=== PATIENT | female | born 1970 | race Caucasian/White ===

== ENCOUNTER 2017-03-22 08:52 | Observation (INO) | payer BC ==
[2017-03-19 11:01] VITALS: BMI 36.7
[~2017-03-22] VITALS: Ht 165.1 cm; Wt 95.0 kg
[2017-03-22] VITALS (19 sets, daily range): BP systolic 102–140; BP diastolic 60–89; PULSE 63–80; RESP 14–38; Ht 165.1 cm; Wt 95.0 kg
[~2017-03-22 08:52] MED LIST: ADV50050 INH; ALBU18HF IH; AMIT25TA9 PO; AMLO-218 PO; ATEN-51 PO; BENA40TA41 PO; BUPIVACAINE 0.25% (MPF) 30 ML INJ INJ ONE; BUPIVACAINE 0.25%/EPI (SDV) 30 ML INJ INJ ONE; BUPR-34 PO; CHOL2000 PO; GLYCOPYRROLATE 0.4 MG INJ ONE; HYD25 PO; NEOSTIGMINE 3 MG/3 ML SYRINGE ONE; SERT100T PO; TIOT18CA IH
[2017-03-22] MEDS ORDERED: CEFAZOLIN 2 GM/50 ML (PMX) 50 ML IVPB ONE (09:00)
[2017-03-22] MEDS ORDERED: SOD CHLORIDE 0.9% 1,000 ML IV ONE (09:00)
[2017-03-22] MEDS ORDERED: METF500T4 PO (09:44)
[2017-03-22] MEDS ORDERED: AMLO5TAB4 PO (09:47)
[2017-03-22] MEDS ORDERED: ATEN50TA PO (09:47)
[2017-03-22] MEDS ORDERED: BUPR150T18 PO (09:48)
[2017-03-22] MEDS ORDERED: BENA40TA41 PO (09:48)
[2017-03-22] MEDS ORDERED: PRAV20TA63 PO (09:48)
[2017-03-22] MEDS ORDERED: BUPIVACAINE 0.25% (MPF) 30 ML INJ ONE (11:08)
[2017-03-22] MEDS ORDERED: ONDANSETRON 4 MG INJ IV PRN ×2 (11:30→15:30)
[2017-03-22] MEDS ORDERED: OXYCODONE/ACETAMINOPHEN (5/325) TAB PO PRN ×2 (11:30)
[2017-03-22] MEDS ORDERED: KETOROLAC 30 MG INJ IV PRN (11:30)
[2017-03-22] MEDS ORDERED: DIPHENHYDRAMINE 50 MG INJ IV PRN (11:30)
[2017-03-22] MEDS ORDERED: MIDAZOLAM 1 MG/ML 2 ML INJ IV PRN (11:30)
[2017-03-22] MEDS ORDERED: HYDROmorphONE (0.2 MG/ML) 10ML SYG IV PRN ×3 (11:30)
[2017-03-22] MEDS ORDERED: FENTAnyl 50 MCG/ML VIAL IV PRN ×3 (11:30)
[2017-03-22] MEDS ORDERED: MEPERIDINE 25 MG INJ IV PRN (11:30)
[2017-03-22] MEDS ORDERED: hydrALAzine 20 MG INJ IV PRN ×2 (11:30→18:00)
[2017-03-22] MEDS ORDERED: LABETALOL HCL 20MG INJ IV PRN (11:30)
[2017-03-22] MEDS ORDERED: EPHEDrine SULFATE 50 MG/5 ML SYG IV PRN (11:30)
[2017-03-22] MEDS ORDERED: PROPOFOL 100 ML ONE (11:31)
[2017-03-22] MEDS ORDERED: ROCURONIUM 50 MG INJ ONE (11:31)
[2017-03-22] MEDS ORDERED: ACETAMINOPHEN 1000MG/100ML IV 100 ML ONE (11:52)
[2017-03-22] MEDS ORDERED: LIDOCAINE 2% (SDV) 5 ML INJ ONE (11:52)
[2017-03-22] MEDS ORDERED: DEXAMETHASONE 4 MG/ML 1 ML INJ ONE (11:53)
[2017-03-22] MEDS ORDERED: ONDANSETRON 4 MG INJ ONE (11:55)
[2017-03-22] MEDS ORDERED: SOD CHLORIDE 0.9% 1,000 ML IV SCH (12:59)
[2017-03-22] MEDS: CEFAZOLIN 2 GM/50 ML (PMX) 50 ML IVPB SCH ×2 (13:00→20:51)
[2017-03-22] MEDS ORDERED: FENTAnyl 50 MCG/ML VIAL ONE (13:02)
--- NOTE | 2017-03-22 13:07 | OPR ---
Date/Time of Note Date/Time of Note DATE: 03/22/17 TIME: 13:01 Operative Report Procedure Date: Mar 22, 2017 Preoperative Diagnosis recurrent incarcerated ventral hernia Postoperative Diagnosis same Operation Performed 1. open recurrent incarcerated ventral hernia repair cpt code 26001 2. intraabdominal implantation of mesh cpt code 58487 3. removal of old malpositioned mesh 4. lysis of adhesions 5. therapeutic injection of subcutaneous marcaine cpt code 85925 Surgeon: Holly STALEY Anesthesia Type: general Estimated Blood Loss: 10 - 50 ml's Specimens hernia sac old mesh Grafts/Implants: none Complications: no Indications This is a 47-year-old female with a recurrent incarcerated ventral hernia. She required surgical repair. Risks alternatives benefits and percent were discussed the patient. Patient expressed understanding consents to the operation. Procedure Description Patient taken to the OR and prepped and draped in usual sterile fashion. Surgical timeout was performed. IV antibiotics given. Incision is made around the umbilicus and superiorly and inferiorly with a 10 blade. Dissection cautery was carried onto the fascia. Identification of a recurrent hernia was noted. Careful dissection was performed around the hernia and the hernia sac was excised. Incarcerated contents were then manually reduced. The fascial edges were then freshened. The incarcerated contents were reexamined for hemostasis. An old malposition mesh was used to the omentum. This was excised using cautery. The omentum was hemostatic and repositioned back into the abdomen. Significant amount of lysis of adhesions was performed to allow mobilization of the incarcerated contents out of the hernia sac. 15 x [address] mesh was then uses underlay with interrupted #1 Prolene around all of the fascial edges. The fascial edges were then primary closed with a running #1 loop PDS. The surgical wound was then thoroughly irrigated. The surgical wound was hemostatic. The skin was then closed with skin mikey. Therapeutic subcutaneous Marcaine was injected throughout the incision site. Dry dressings were applied. Holly STALEY Mar 22, 2017 13:07
[2017-03-22 13:42] LABS: BASOPHIL # 0.1 10^3/ul (0.0-0.1); BASOPHILS % 0.4 % (0.0-2.0); EOSINOPHILS # 0.1 10^3/ul (0.0-0.5); EOSINOPHILS % 0.5 % (0.0-7.0); HEMOGLOBIN 15.1 g/dl (12.0-16.0); LYMPHOCYTES % 11.9 % (15.0-51.0); MEAN CORPUSCULAR HEMOGLOBIN 30.3 pg (29.0-33.0); MEAN CORPUSCULAR HGB CONC 32.1 g/dl (32.0-37.0); MEAN CORPUSCULAR VOLUME 94.2 fl (82.0-101.0); MEAN PLATELET VOLUME 9.7 fl (7.4-10.4); MONOCYTE # 0.7 10^3/ul (0.3-0.9); MONOCYTES % 4.1 % (0.0-11.0); NEUTROPHILS % 80.8 % (39.0-77.0); PLATELET COUNT 379 10^3/UL (140-415); RED BLOOD COUNT 4.99 10^6/ul (4.20-5.40); RED CELL DISTRIBUTION WIDTH 13.6 % (11.5-14.5); WHITE BLOOD COUNT 17.1 10^3/ul (4.8-10.8)
[2017-03-22 13:43] LABS: HOLD TRANSMISSIONS 1
[2017-03-22 13:59] LABS: ALBUMIN 4.1 g/dl (3.3-4.9); ALBUMIN/GLOBULIN RATIO 1.41; BILIRUBIN,INDIRECT 0.2 mg/dl (0-1.1); BILIRUBIN,TOTAL 0.2 mg/dl (0.2-1.3); CALCIUM 9.3 mg/dl (8.4-10.2); CREATININE 0.68 mg/dl (0.44-1.00)
[2017-03-22 14:00] LABS: POTASSIUM 3.9 mmol/L (3.5-5.1)
[2017-03-22] MEDS ORDERED: ALBUTEROL 0.083% (NEB) 2.5 MG/3 ML AMP HHN PRN (15:30)
[2017-03-22] MEDS ORDERED: ALBUTEROL 18 GM INHALER INH PRN (15:30)
[2017-03-22] MEDS ORDERED: GLUCOSE GEL 15 GRAM TUBE BUCCAL PRN (15:30)
[2017-03-22] MEDS ORDERED: GLUCAGON 1 MG INJ IM PRN (15:30)
[2017-03-22] MEDS ORDERED: GLUCOSE GEL 15 GRAM TUBE PO PRN ×2 (15:30)
[2017-03-22] MEDS ORDERED: DEXTROSE 50% 50 ML SYRINGE IV PRN ×2 (15:30)
[2017-03-22] MEDS: morphine 2 MG INJ IV PRN ×3 (15:58→21:41)
[2017-03-22] MEDS: SOD CHLORIDE 0.9% 1,000 ML IV SCH (15:58)
--- NOTE | 2017-03-22 16:20 | HP ---
Date/Time of Note Date/Time of Note DATE: 03/22/17 TIME: 15:26 Assessment/Plan VTE Prophylaxis VTE Prophylaxis Intervention: SCD's Lines/Catheters IV Catheter Type (from Nrsg): Saline Lock Assessment/Plan Assessment/Plan - recurrent incarcerated ventral hernia - sp open recurrent incarcerated ventral hernia repair ; intraabdominal implantation of mesh ; removal of old malpositioned mesh; lysis of adhesions; therapeutic injection.Patient has nausea, will resume po meds once she stable. - Admit to [facility] - per surgery - IVF - Morphine for pain control - SCD - IS -Hypertension- stable at present. Hydralazine 5 mg IV Q6HR prn N/V - Diabetes Mellitus\ - Glycemic control Plan of care dw Dr Royal/ staff/patient. HPI/ROS Admit Date/Time Admit Date/Time Hx of Present Illness This is a 47 years old female patient with HTN, DM, Obesity, COPD, and recurrent incarcerated ventral hernia . patient is admitted sp open recurrent incarcerated ventral hernia repair today by Dr Corcoran. Patient has post op pain is admitted under Dr Hagen for further treatment/ evaluation. Patient denies any chest pain ROS Respiratory: no complaints Cardiovascular: no complaints Gastrointestinal: pain Genitourinary: no complaints Musculoskeletal: no complaints Skin: no complaints Neurologic: no complaints PMH/Family/Social Past Medical History Medical History: diabetes, hypertension Past Surgical History Past Surgical Hx: other (sp ventra hrenia repair, ) Family History Significant Family History: diabetes Social History Alcohol Use: none Smoking Status: Former smoker Drug Use: none Exam/Review of Systems Vital Signs Vitals Vital Signs Date Time Temp Pulse Resp B/P Pulse Ox O2 Delivery O2 Flow Rate FiO2 03/22/17 14:36 98.5 83 20 124/87 93 03/22/17 13:51 Nasal Cannula 3.0 Exam Constitutional: alert, well developed Respiratory: diminished breath sounds Cardiovascular: regular rate and rhythm Gastrointestinal: non-tender, soft Musculoskeletal: nl extremities to inspection Extremities: normal pulses Neurological: nl mental status, nl speech Labs Result Diagram: 03/22/17 1332 03/22/17 1332 Medications Medications Current Medications Sodium Chloride 1,000 ml @ 75 mls/hr [id number] ONCE IV ; Start 03/22/17 at 09:00 ; Stop 03/22/17 at 22:19 Cefazolin Sodium/ Dextrose (Ancef 2 Gm/50 ml (Pmx)) 50 ml @ 100 mls/hr Q8H IVPB ; Start 03/22/17 at 13:00; Stop 03/23/17 at 12:59 Morphine Sulfate (morphine) 2 mg Q2H PRN IV PAIN LEVEL 6-10; Start 03/22/17 at 13:00 Acetaminophen/ Hydrocodone Bitart ([place] (5/325)) 1 tab Q6H PRN PO PAIN LEVEL 6 -10; Start 03/22/17 at 13:00 Diagnostic Test (Pha) 1 ea 1 ea 02 XX ; Start 03/23/17 at 02:00 Sodium Chloride (NS) 1,000 ml @ 60 mls/hr [id number] IV ; Start 03/22/17 at 15:00 Miscellaneous Information 1 ea NOTE XX ; Start 03/22/17 at 15:30 Glucose (Glutose) 15 gm Q15M PRN PO DECREASED GLUCOSE; Start 03/22/17 at 15:30 Glucose (Glutose) 22.5 gm Q15M PRN PO DECREASED GLUCOSE; Start 03/22/17 at 15: 30 Dextrose (D50w Syringe) 25 ml Q15M PRN IV DECREASED GLUCOSE; Start 03/22/17 at 15:30 Dextrose (D50w Syringe) 50 ml Q15M PRN IV DECREASED GLUCOSE; Start 03/22/17 at 15:30 Glucagon (Glucagen) 1 mg Q15M PRN IM DECREASED GLUCOSE; Start 03/22/17 at 15:30 Glucose (Glutose) 15 gm Q15M PRN BUCCAL DECREASED GLUCOSE; Start 03/22/17 at 15 :30 Hydralazine HCl (Apresoline) 5 mg Q6H PRN IV for SBP >160; Start 03/22/17 at 18 :00 Ondansetron HCl (Zofran Inj) 4 mg Q6H PRN IV NAUSEA AND/OR VOMITING; Start 05/28 at 15:30 Albuterol (Ventolin Hfa) 2 puff Q6 PRN INH WHEEZING AND RESP DISTRESS; Start at 15:30 Tiotropium [place] (Spiriva) 1 inh Q6 INH ; Start 03/22/17 at 18:00 SHAUNA CHUN Mar 22, 2017 16:02
[2017-03-22] MEDS: TIOTROPIUM 18 MCG CAPSULE INHA DEV INH SCH (18:27)
[2017-03-22] MEDS: INSULIN ASPART [NOVOLOG] 3 ML PEN SC SCH ×3 (18:27→21:40)
[2017-03-22] MEDS: HYDROCODONE/APAP (5/325) TAB PO PRN (18:31)
[2017-03-23 01:45] VITALS: BP 134/77; RESP 18
[2017-03-23] MEDS ORDERED: ACCU-CHEK XX SCH (02:00)
[2017-03-23] MEDS: morphine 2 MG INJ IV PRN (05:44)
[2017-03-23] MEDS: CEFAZOLIN 2 GM/50 ML (PMX) 50 ML IVPB SCH (05:44)
[2017-03-23 05:52] LABS: BASOPHIL # 0.1 10^3/ul (0.0-0.1); BASOPHILS % 0.3 % (0.0-2.0); EOSINOPHILS # 0.1 10^3/ul (0.0-0.5); EOSINOPHILS % 0.4 % (0.0-7.0); HEMATOCRIT 44.7 % (37.0-47.0); HEMOGLOBIN 14.6 g/dl (12.0-16.0); LYMPHOCYTES # 2.4 10^3/ul (0.8-2.9); LYMPHOCYTES % 14.6 % (15.0-51.0); MEAN CORPUSCULAR HEMOGLOBIN 30.7 pg (29.0-33.0); MEAN CORPUSCULAR HGB CONC 32.7 g/dl (32.0-37.0); MEAN CORPUSCULAR VOLUME 94.1 fl (82.0-101.0); MEAN PLATELET VOLUME 10.1 fl (7.4-10.4); MONOCYTE # 1.5 10^3/ul (0.3-0.9); NEUTROPHILS % 74.1 % (39.0-77.0); PLATELET COUNT 357 10^3/UL (140-415); RED BLOOD COUNT 4.75 10^6/ul (4.20-5.40); RED CELL DISTRIBUTION WIDTH 13.5 % (11.5-14.5); WHITE BLOOD COUNT 16.5 10^3/ul (4.8-10.8)
[2017-03-23] MEDS: TIOTROPIUM 18 MCG CAPSULE INHA DEV INH SCH ×4 (06:00→17:55)
[2017-03-23 06:14] LABS: ALBUMIN 3.8 g/dl (3.3-4.9); ALBUMIN/GLOBULIN RATIO 1.4; BILIRUBIN,INDIRECT 0.5 mg/dl (0-1.1); BILIRUBIN,TOTAL 0.5 mg/dl (0.2-1.3); CALCIUM 9.4 mg/dl (8.4-10.2); CREATININE 0.7 mg/dl (0.44-1.00); POTASSIUM 3.6 mmol/L (3.5-5.1); TOTAL PROTEIN 6.5 g/dl (6.1-8.1)
[2017-03-23 06:16] LABS: CALCIUM 9.6 mg/dl (8.4-10.2); CHOL/HDL RATIO 4.1 RATIO; CREATININE 0.64 mg/dl (0.44-1.00); POTASSIUM 3.6 mmol/L (3.5-5.1)
[2017-03-23 07:34] VITALS: BP 131/76; RESP 20
[2017-03-23] MEDS: SOD CHLORIDE 0.9% 1,000 ML IV SCH (07:40)
[2017-03-23] MEDS: INSULIN ASPART [NOVOLOG] 3 ML PEN SC SCH ×3 (09:11→17:55)
[2017-03-23] MEDS: HYDROCODONE/APAP (5/325) TAB PO PRN ×2 (13:00→19:16)
[2017-03-23 14:00] VITALS: BP 154/89; RESP 22
--- NOTE | 2017-03-23 16:25 | PN ---
Date/Time of Note Date/Time of Note DATE: 03/23/17 TIME: 16:24 Assessment/Plan VTE Prophylaxis VTE Prophylaxis Intervention: SCD's Lines/Catheters IV C[facility]ter Type (from [facility]): Saline Lock Urinary Cath still in place: No Assessment/Plan Chief Complaint/Hosp Course s/p open recurrent incarcerated ventral hernia repair with mesh Problems: Assessment/Plan dc home today Subjective 24 Hr Interval Summary Free Text/Dictation doing well, ambulating well, tolerating diet Exam/Review of Systems Vital Signs Vitals Vital Signs Date Time Temp Pulse Resp B/P Pulse Ox O2 Delivery O2 Flow Rate FiO2 03/23/17 14:00 98.7 92 22 154/89 92 03/22/17 17:15 Nasal Cannula 03/22/17 14:30 2.0 Intake and Output 03/22/17 03/22/17 03/23/17 15:00 23:00 07:00 Intake Total 700 ml 410 ml 1280 ml Output Total 15 ml 100 ml 150 ml Balance 685 ml 310 ml 1130 ml Exam c/d/i Results Result Diagram: 03/23/17 0505 03/23/17 0505 Results 24 hrs Laboratory Tests Test 03/22/17 17:28 03/22/17 21:35 03/23/17 05:05 03/23/17 09:00 Bedside Glucose 172 159 171 White Blood Count 16.5 H Red Blood Count 4.75 Hemoglobin 14.6 Hematocrit 44.7 Mean Corpuscular Volume 94.1 Mean Corpuscular Hemoglobin 30.7 Mean Corpuscular Hemoglobin Concent 32.7 Red Cell Distribution Width 13.5 Platelet Count 357 Mean Platelet Volume 10.1 Neutrophils % 74.1 Lymphocytes % 14.6 L Monocytes % 9.0 Eosinophils % 0.4 Basophils % 0.3 Nucleated Red Blood Cells % 0.0 Neutrophils # (Manual) 12.2 H Lymphocytes # 2.4 Monocytes # 1.5 H Eosinophils # 0.1 Basophils # 0.1 Nucleated Red Blood Cells # 0.0 Sodium Level 134 L Potassium Level 3.6 Chloride Level 100 Carbon Dioxide Level 24 Anion Gap 14 Blood Urea Nitrogen 16 Creatinine 0.64 Glucose Level 153 Hemoglobin A1c 6.8 H Calcium Level 9.6 Total Bilirubin 0.5 Direct Bilirubin 0.00 Indirect Bilirubin 0.5 Aspartate Amino Transf (AST/SGOT) 29 Alanine Aminotransferase (ALT/SGPT) 50 Alkaline Phosphatase 74 Total Protein 6.5 Albumin 3.8 Globulin 2.70 Albumin/Globulin Ratio 1.40 Triglycerides Level 242 H Cholesterol Level 209 H LDL Cholesterol, Calculated 111 HDL Cholesterol 50 Cholesterol/HDL Ratio 4.1 Test 03/23/17 12:47 Bedside Glucose 188 Medications Medications Current Medications Morphine Sulfate (morphine) 2 mg Q2H PRN IV PAIN LEVEL 6-10 Last administered on 03/23/17 05:44; Admin Dose 2 MG; Start 03/22/17 at 13:00 Acetaminophen/ Hydrocodone Bitart ([address] (5/325)) 1 tab Q6H PRN PO PAIN LEVEL 6 -10 Last administered on 03/23/17 13:00; Admin Dose 1 TAB; Start 03/22/17 at 13 :00 Diagnostic Test (Pha) 1 ea 1 ea 02 XX ; Start 03/23/17 at 02:00 Sodium Chloride (NS) 1,000 ml @ 60 mls/hr [id number] IV Last administered on 03/22 15:58; Admin Dose 60 MLS/HR; Start 03/22/17 at 15:00 Miscellaneous Information 1 ea NOTE XX ; Start 03/22/17 at 15:30 Glucose (Glutose) 15 gm Q15M PRN PO DECREASED GLUCOSE; Start 03/22/17 at 15:30 Glucose (Glutose) 22.5 gm Q15M PRN PO DECREASED GLUCOSE; Start 03/22/17 at 15: 30 Dextrose (D50w Syringe) 25 ml Q15M PRN IV DECREASED GLUCOSE; Start 03/22/17 at 15:30 Dextrose (D50w Syringe) 50 ml Q15M PRN IV DECREASED GLUCOSE; Start 03/22/17 at 15:30 Glucagon (Glucagen) 1 mg Q15M PRN IM DECREASED GLUCOSE; Start 03/22/17 at 15:30 Glucose (Glutose) 15 gm Q15M PRN BUCCAL DECREASED GLUCOSE; Start 03/22/17 at 15 :30 Hydralazine HCl (Apresoline) 5 mg Q6H PRN IV for SBP >160; Start 03/22/17 at 18 :00 Ondansetron HCl (Zofran Inj) 4 mg Q6H PRN IV NAUSEA AND/OR VOMITING; Start 05/28 at 15:30 Albuterol (Ventolin Hfa) 2 puff Q6 PRN INH WHEEZING AND RESP DISTRESS; Start at 15:30 Tiotropium [place] (Spiriva) 1 inh Q6 INH Last administered on 03/22/17t 18:27 ; Admin Dose 1 INH; Start 03/22/17 at 18:00 Holly STALEY Mar 23, 2017 16:25
--- NOTE | 2017-03-23 17:32 | PDOCDIS ---
Discharge Instructions CONDITION Patient Condition: Stable HOME CARE INSTRUCTIONS: Diet Instructions: ACTIVITY: Activity Restrictions: Slowly Increase Activity Rest between Activity Avoid heavy lifting Bathing Restrictions: Sponge Bath FOLLOW UP/APPOINTMENTS Follow-up Plan FU with primary MD x 1 week Fu with Surgery as recommended. Call 911 or go to the the nearest hospital is symptoms got worse.Patient verbalized understanding dc instructions. Home Royal/staff SHAUNA CHUN Mar 23, 2017 17:32
[2017-03-23] MEDS ORDERED: HYDR-3498 PO (17:38)
[2017-03-23] MEDS ORDERED: DOCU-144 PO (17:38)
[2017-03-23] MEDS ORDERED: ATOR40TA68 PO (17:50)
--- NOTE | 2017-03-23 17:50 | DS ---
Date/Time of Note Date/Time of Note DATE: 03/23/17 TIME: 17:50 Discharge Summary Admission/Discharge Info Admit Date/Time Mar 22, 2017 at 13:01 Discharge Date/Time Patient Condition: Stable Hx of Present Illness This is a 47 years old female patient with HTN, DM, Obesity, COPD, and recurrent incarcerated ventral hernia . patient is admitted sp open recurrent incarcerated ventral hernia repair today by Dr Corcoran. Patient has post op pain is admitted under Dr Hagen for further treatment/ evaluation. Patient denies any chest pain Hospital Course s/p open recurrent incarcerated ventral hernia repair with mesh Home Meds Active Scripts Atorvastatin* (Atorvastatin*) 40 Mg Tablet, 40 MG PO QHS, #30 TAB Prov:SHAUNA CHUN 03/23/17 Docusate Sodium* (Colace*) 100 Mg Capsule, 100 MG PO BID, #30 CAP Prov:SHAUNA CHUN 03/23/17 Hydrocodone Bit-Acetaminophen (Hydrocodone Bit-APAP) 5-325MG Tablet, 1 TAB PO Q6H Y for PAIN LEVEL 6-10, #20 TAB Prov:SHAUNA CHUN 03/23/17 Reported Medications Pravastatin Sodium* (Pravastatin Sodium*) 20 Mg Tablet, 20 MG PO HS, TAB 03/22/17 Bupropion Hcl* (Bupropion Hcl SR*) 150 Mg Tablet.er, 150 MG PO BID, TAB.SA 03/22/17 Benazepril Hcl* (Benazepril Hcl*) 40 Mg Tablet, 40 MG PO QHS, #30 TAB 03/22/17 Atenolol* (Atenolol*) 50 Mg Tablet, 50 MG PO DAILY, #30 TAB 03/22/17 Amlodipine Besylate* (Norvasc*) 5 Mg Tablet, 5 MG PO DAILY, TAB 03/22/17 Metformin Hcl* (Metformin Hcl*) 500 Mg Tablet, 500 MG PO WITH BREAKFAST DINNE, # 30 TAB 03/22/17 Sertraline Hcl* (Zoloft*) 100 Mg Tablet, 100 MG PO DAILY, TAB 05/29/15 Tiotropium [place]* (Spiriva*) 18 Mcg Cap.w.dev, 1 INH IH DAILY, EA 05/29/15 Hydrochlorothiazide* (Hydrochlorothiazide*) 25 Mg Tab, 25 MG PO DAILY, TAB 05/29/15 Albuterol Sulfate* (Ventolin HFA*) 18 Gm Hfa.aer.ad, 2 PUFF IH Q4-6 HOURS Y for WHEEZING AND RESP DISTRESS, EA 05/29/15 Cholecalciferol* (Vitamin D3*) 2,000 Unit Cap, 2000 UNIT PO DAILY, CAP 05/29/15 Discontinued Reported Medications Atenolol* (Atenolol*) 25 Mg Tablet, 25 MG PO DAILY, TAB 05/29/15 Bupropion Hcl* (Wellbutrin SR*) 150 Mg Tablet.sa, 150 MG PO DAILY, TAB.SA 05/29/15 Salmeterol Xinaf-Fluticasone* (Advair*) 500/50 Diskus Inhaler, 1 INH INH BID, INH 05/29/15 Benazepril Hcl* (Benazepril Hcl*) 40 Mg Tablet, 40 MG PO DAILY, TAB 05/29/15 Amlodipine Besylate* (Norvasc*) 10 Mg Tablet, 10 MG PO DAILY, TAB 05/29/15 Amitriptyline Hcl* (Amitriptyline Hcl*) 25 Mg Tablet, 25-50 MG PO HS, TAB 05/29/15 Follow-up Plan FU with primary MD x 1 week Fu with Surgery as recommended. Call 911 or go to the the nearest hospital is symptoms got worse.Patient verbalized understanding dc instructions. Dw Dr Royal/staff Primary Care Provider Not On Staff Doctor Pending Labs Laboratory Tests Test 03/22/17 21:35 03/23/17 05:05 03/23/17 09:00 03/23/17 12:47 Bedside Glucose 159mg/dL (70-220) 171mg/dL (70-220) 188mg/dL (70-220) White Blood Count 16.510^3/ul (4.8-10.8) Red Blood Count 4.7510^6/ul (4.20-5.40) Hemoglobin 14.6g/dl (12.0-16.0) Hematocrit 44.7% (37.0-47.0) Mean Corpuscular Volume 94.1fl (82.0-101.0) Mean Corpuscular Hemoglobin 30.7pg (29.0-33.0) Mean Corpuscular Hemoglobin Concent 32.7g/dl (32.0-37.0) Red Cell Distribution Width 13.5% (11.5-14.5) Platelet Count 80124^3/UL (140-415) Mean Platelet Volume 10.1fl (7.4-10.4) Neutrophils % 74.1% (39.0-77.0) Lymphocytes % 14.6% (15.0-51.0) Monocytes % 9.0% (0.0-11.0) Eosinophils % 0.4% (0.0-7.0) Basophils % 0.3% (0.0-2.0) Nucleated Red Blood Cells % 0.0/100WBC (0.0-0.0) Neutrophils # (Manual) 12.210^3/ul (1.7-7.5) Lymphocytes # 2.410^3/ul (0.8-2.9) Monocytes # 1.510^3/ul (0.3-0.9) Eosinophils # 0.110^3/ul (0.0-0.5) Basophils # 0.110^3/ul (0.0-0.1) Nucleated Red Blood Cells # 0.010^3/ul (0.0-0.0) Sodium Level 134mmol/L (135-144) Potassium Level 3.6mmol/L (3.5-5.1) Chloride Level 100mmol/L (97-110) Carbon Dioxide Level 24mmol/L (21-31) Anion Gap 14 (8-16) Blood Urea Nitrogen 16mg/dl (7-20) Creatinine 0.64mg/dl (0.44-1.00) Glucose Level 153mg/dl (70-220) Hemoglobin A1c 6.8% (0-5.9) Calcium Level 9.6mg/dl (8.4-10.2) Total Bilirubin 0.5mg/dl (0.2-1.3) Direct Bilirubin 0.00mg/dl (0.00-0.20) Indirect Bilirubin 0.5mg/dl (0-1.1) Aspartate Amino Transf (AST/SGOT) 29IU/L (15-46) Alanine Aminotransferase (ALT/SGPT) 50IU/L (13-69) Alkaline Phosphatase 74IU/L (42-121) Total Protein 6.5g/dl (6.1-8.1) Albumin 3.8g/dl (3.3-4.9) Globulin 2.70g/dl (1.3-3.2) Albumin/Globulin Ratio 1.40 Triglycerides Level 242mg/dl (0-149) Cholesterol Level 209mg/dl (100-200) LDL Cholesterol, Calculated 111mg/dl HDL Cholesterol 50mg/dl (37-92) Cholesterol/HDL Ratio 4.1RASHAUNA LOVE Mar 23, 2017 17:50
== END 2017-03-23 19:30 | disposition home or self-care (01) ==
LOC: SUR 08:52 → SDS 08:52 → MS1 13:01 → SUR 13:04 → MS1 14:00
PROVIDERS: ADMIT Internal Medicine; ATTEND Surgery
DX: K43.0 Incisional hernia with obstruction, without gangrene (principal); I10 Essential (primary) hypertension; E11.9 Type 2 diabetes mellitus without complications; J44.9 Chronic obstructive pulmonary disease, unspecified; E66.01 Morbid (severe) obesity due to excess calories; Z68.34 Body mass index [BMI] 34.0-34.9, adult; Z87.891 Personal history of nicotine dependence; Z79.84 Long term (current) use of oral hypoglycemic drugs; Z83.3 Family history of diabetes mellitus
CPT/HCPCS: 49566; 49568; 80048; 80053; 80061; 82962; 83036; 85025; 88304; 96365; 96372; 96375; 96376; C1781; J0131; J0690; J1100; J1815; J2175; J2270; J2405; J2710; J3010; J7030; Z7500; Z7512; Z7610; G0378